=== PATIENT | female | born 1985 | race Caucasian/White ===

== ENCOUNTER → 2019-06-27 14:06 | Outpatient (CLI) | payer BC, SELFPAY | PROVIDERS: Family Provider Family Medicine; PCP Family Medicine; Referring Provider Nurse Practitioner Family; Visit Provider Nurse Practitioner Family | DX: J02.9 Acute pharyngitis, unspecified (principal) | CPT/HCPCS: 87070; 87077 ==

== ENCOUNTER → 2019-12-19 12:15 | Outpatient (CLI) | payer BC, SELFPAY ==
[2019-12-19 14:07] LABS: Absolute Lymphocyte Count 2.47 X10^3/uL (0.83-4.51); Absolute Neutrophil Count 4.7 X10^3/uL (2.0-7.7); Basophil# 0.01 X10^3/uL; Basophil% 0.1 % (0-1); Eosinophil# 0.03 X10^3/uL; Eosinophils% 0.4 % (0-5); Hematocrit 40.5 % (37-47); Hemoglobin 13.2 g/dL (12.0-15.0); Lymphocyte # 2.47 X10^3/ul (4.0); Lymphocyte % 32.4 % (19-41); Mean Corp Hgb Conc 32.6 g/dL (32-36); Mean Corpuscular Hgb 31.1 pg (27.0-32.0); Mean Corpuscular Volume 95.3 fL (81-99); Mean Platelet Vol. 11.2 fl (6.2-12.0); Monocyte# 0.36 X10^3/uL; Monocyte% 4.7 % (0-10); NRBC Flagged by Analyzer 0 % (0-5); Neutrophil # 4.74 X10^3/uL (2.7-7.7); Neutrophil % 62.3 % (47-70); Platelet Count 224 K/mm3 (150-450); RBC Distribution Width CV 12.9 % (11.6-14.6); RBC Distribution Width SD 45.1 fl (35.1-43.9); Red Blood Count 4.25 M/mm3 (4.2-5.4); White Blood Count 7.6 K/mm3 (4.4-11.0)
[2019-12-19 14:22] LABS: ALB/GLOB Ratio 1.1 RATIO (0.9-2.4); AST(SGOT) 8 U/L (15-37); Alanine Aminotransfer ALT/SGPT 14 U/L (13-56); Albumin, Serum 3.8 g/dL (3.2-5.0); Alkaline Phosphatase 50 U/L (45-117); Anion Gap 3 (5-15); BUN 7 mg/dL (7-18); Calcium,Total 8.7 mg/dL (8.5-10.1); Chloride 108 mmol/L (98-107); Creatinine, Serum 0.58 mg/dL (0.55-1.02); EST Glomerular Filtration Rate 125 mL/min (>60); Est Glom Filt Rate - Afr Amer 151 mL/min (>60); Globulin 3.4 g/dL (2.2-4.2); Glucose 83 mg/dL (74-106); Potassium 3.8 mmol/L (3.5-5.1); Protein, Total 7.2 g/dL (6.4-8.2); Sodium Level 138 mmol/L (136-145)
[2019-12-20 10:56] LABS: HIV - WCH Non-Reactive (Nonreactive); Hepatitis B Surface Antigen Non-Reactive (Nonreactive); Hepatitis C Antibody Non-Reactive (Nonreactive); Rubella IgG 172.1 IU/mL
[2019-12-22 03:50] LABS: Rapid Plasmin Reagin (RPR) NONREACTIVE (NONREACTIVE)
== END ==
PROVIDERS: PCP Family Medicine; Referring Provider Family Medicine; Visit Provider Family Medicine
DX: Z34.90 Encounter for supervision of normal pregnancy, unspecified, unspecified trimester (principal)
CPT/HCPCS: 36415; 80053; 85025; 86592; 86703; 86762; 86803; 86900; 86901; 87340

== ENCOUNTER → 2019-12-19 14:23 | Outpatient (CLI) | payer BC, SELFPAY ==
[2019-12-19 15:08] LABS: Mucous, Urine 0 SEEN /hpf (<or=2+); Red Blood Cells-Urine 0 SEEN /hpf (0-5); Squamous Epithelial Cells - UA 0 SEEN /hpf (5-10); White Blood Cells 0 SEEN /hpf (0-5)
[2019-12-19 15:49] LABS: Color, Urine Straw (Yellow); Glucose, Dipstick Normal (Normal); Ketone-Dipstick Negative (Negative); Leukocyte Esterase-Dipstick 25 /ul (Negative); Nitrite-Dipstick Negative (Negative); Occult Blood-Urine Negative /ul (Negative); Protein-Dipstick Negative (Negative); Specific Gravity, Urine 1.005 (1.002-1.030); Urine Bilirubin Dipstick Negative (Negative); Urine Clarity Clear (Clear); Urine Urobilinogen Normal (Normal)
[2019-12-19 16:13] LABS: Bacteria RARE /hpf (None Seen)
[2019-12-19 16:54] LABS: Chlamydia Trachomatis by PCR Negative (Negative); Neisserai gonorrhoeae by PCR Negative (Negative); Probe Check PASS; Sample Adequacy Control PASS; Specimen Processing Control PASS
== END ==
PROVIDERS: PCP Family Medicine; Referring Provider Family Medicine; Visit Provider Family Medicine
DX: Z34.90 Encounter for supervision of normal pregnancy, unspecified, unspecified trimester (principal)
CPT/HCPCS: 81001; 87491; 87591

== ENCOUNTER → 2019-12-22 12:19 | Outpatient (CLI) | payer BC, SELFPAY ==
--- NOTE | 2019-12-22 12:23 | US_ITS ---
STUDY: FIRST TRIMESTER OBSTETRICAL ULTRASOUND REASON FOR EXAM: Female, 34 years old size and dates, unsure of LMP LMP: Unknown. TECHNIQUE: Transvaginal TECHNICAL QUALITY: Adequate. PRIOR ULTRASOUND: None. FINDINGS: There is visualization of a single gestational sac in a normal intrauterine position. The mean sac diameter (MSD) measures 3.31 cm, indicating an estimated gestational age (EGA) of 8 weeks, 5 days. The gestational sac shape is within normal limits. There is a visualized yolk sac. The yolk sac measures 5.0 mm. The placenta is non-visualized. There is visualization of a live embryo. The crown-rump length (CRL) measures 2.55 cm, indicating an estimated gestational age (EGA) of 9 weeks, 3 days. There is demonstrated cardiac activity with a heart rate of 174 bpm. The estimated gestation age (EGA) by US is 9 weeks, 1 days. The estimated date of delivery (NICOL) by US is 07/25/2020. The uterus measures 11.3 x 7.0 x 6.1 cm. There is no demonstrated uterine fibroid. The cervix is closed. The right ovary measures 3.1 x 1.7 x 2.4 cm. There is no right ovarian cyst. There is no visualized right adnexal mass or complex lesion. The left ovary measures 2.1 x 2.7 x 1.7 cm. There is no left ovarian cyst. There is no visualized left adnexal mass or complex lesion. There is no fluid in the cul de sac. US/Transvaginal w/Preg US IMPRESSION: Single live intrauterine 9 weeks, 1 day by current ultrasound with NICOL of 07/25/2020. Heart rate at 174 bpm. No suspicious sonographic findings Electronically Signed: Shay Wallace MD at 8:58 EST , Service support ,
== END ==
PROVIDERS: PCP Family Medicine; Referring Provider Family Medicine; Visit Provider Family Medicine
DX: Z34.90 Encounter for supervision of normal pregnancy, unspecified, unspecified trimester (principal)
CPT/HCPCS: 76817

== ENCOUNTER → 2020-04-26 16:16 | Outpatient (CLI) | payer BC, SELFPAY ==
[2020-04-26 16:45] LABS: Hematocrit 34.8 % (37-47); Hemoglobin 11.4 g/dL (12.0-15.0); Mean Corp Hgb Conc 32.8 g/dL (32-36); Mean Corpuscular Hgb 32.2 pg (27.0-32.0); Mean Corpuscular Volume 98.3 fL (81-99); Mean Platelet Vol. 10.2 fl (6.2-12.0); Platelet Count 229 K/mm3 (150-450); RBC Distribution Width SD 46.6 fl (35.1-43.9); Red Blood Count 3.54 M/mm3 (4.2-5.4); White Blood Count 11.5 K/mm3 (4.4-11.0)
[2020-04-26 17:15] LABS: Glucose Challenge Gest 1H 50g 105 mg/dL (70-140)
== END ==
PROVIDERS: PCP Family Medicine; Visit Provider Obstetrics & Gynecology
DX: Z34.83 Encounter for supervision of other normal pregnancy, third trimester (principal)
CPT/HCPCS: 36415; 82950; 85027

== ENCOUNTER → 2020-06-18 09:02 | Outpatient (CLI) | payer OTHER, SELFPAY ==
[2020-06-18 09:06] LABS: Mucous, Urine 0 SEEN /hpf (<or=2+); Red Blood Cells-Urine 0 SEEN /hpf (0-5)
[2020-06-18 10:01] LABS: Absolute Lymphocyte Count 1.98 X10^3/uL (0.83-4.51); Absolute Neutrophil Count 6.9 X10^3/uL (2.0-7.7); Basophil# 0.02 X10^3/uL; Basophil% 0.2 % (0-1); Eosinophil# 0.02 X10^3/uL; Eosinophils% 0.2 % (0-5); Hematocrit 33.4 % (37-47); Hemoglobin 10.8 g/dL (12.0-15.0); Lymphocyte # 1.98 X10^3/ul (4.0); Lymphocyte % 21.1 % (19-41); Mean Corp Hgb Conc 32.3 g/dL (32-36); Mean Corpuscular Hgb 31.9 pg (27.0-32.0); Mean Corpuscular Volume 98.5 fL (81-99); Mean Platelet Vol. 10.5 fl (6.2-12.0); Monocyte# 0.42 X10^3/uL; Monocyte% 4.5 % (0-10); NRBC Flagged by Analyzer 0 % (0-5); Neutrophil % 73.4 % (47-70); Platelet Count 236 K/mm3 (150-450); RBC Distribution Width SD 46.4 fl (35.1-43.9); Red Blood Count 3.39 M/mm3 (4.2-5.4); White Blood Count 9.4 K/mm3 (4.4-11.0)
[2020-06-18 10:06] LABS: Color, Urine Yellow (Yellow); Glucose, Dipstick Normal (Normal); Ketone-Dipstick 5 mg/dl (Negative); Leukocyte Esterase-Dipstick 500 /ul (Negative); Nitrite-Dipstick Negative (Negative); Occult Blood-Urine 10 /ul (Negative); Protein-Dipstick 30 mg/dl (Negative); Specific Gravity, Urine 1.025 (1.002-1.030); Urine Clarity Cloudy (Clear); Urine Urobilinogen 1 mg/dl (Normal)
[2020-06-18 10:07] LABS: Urine Bilirubin Dipstick 1 mg/dL (Negative)
[2020-06-18 10:09] LABS: Fibrinogen 476 mg/dl (203-444); Partial Thromboplast Time 22.9 Seconds (24.1-36.2)
[2020-06-18 10:19] LABS: Bacteria 3+ /hpf (None Seen); Calcium Oxalate Crystals Ur 2+ /hpf (<or=2+); Squamous Epithelial Cells - UA 25-50 SEEN /hpf (5-10); White Blood Cells 25-50 SEEN /hpf (0-5)
[2020-06-18 10:38] LABS: ALB/GLOB Ratio 0.7 RATIO (0.9-2.4); AST(SGOT) 10 U/L (15-37); Alanine Aminotransfer ALT/SGPT 10 U/L (13-56); Albumin, Serum 2.8 g/dL (3.2-5.0); Alkaline Phosphatase 238 U/L (45-117); Anion Gap 8 (5-15); BUN 9 mg/dL (7-18); BUN/Creat Ratio 13.2 RATIO (10-20); Calcium,Total 8.3 mg/dL (8.5-10.1); Chloride 108 mmol/L (98-107); Creatinine, Serum 0.68 mg/dL (0.55-1.02); EST Glomerular Filtration Rate 104 mL/min (>60); Est Glom Filt Rate - Afr Amer 126 mL/min (>60); Globulin 4.2 g/dL (2.2-4.2); Glucose 115 mg/dL (74-106); Potassium 3.2 mmol/L (3.5-5.1); Sodium Level 138 mmol/L (136-145); Uric Acid 3.5 mg/dL (2.6-6.0)
[2020-06-18 10:59] LABS: Microalbumin,Random Urine 53.9 mg/L (NO RANGE EST.); Microalbumin:Creatinine Ratio 17.6 mg/g CRE (<30 mg/g CRE)
[2020-06-21 02:04] LABS: Rapid Plasmin Reagin (RPR) NONREACTIVE (NONREACTIVE)
== END ==
PROVIDERS: PCP Family Medicine; Referring Provider Family Medicine; Visit Provider Family Medicine
DX: G43.709 Chronic migraine without aura, not intractable, without status migrainosus (principal)
CPT/HCPCS: 36415; 80053; 81001; 82043; 82570; 84550; 85025; 85384; 85730; 86592; 87086; 87088

== ENCOUNTER → 2020-06-28 17:36 | Outpatient (CLI) | payer OTHER, SELFPAY | PROVIDERS: PCP Family Medicine; Referring Provider Obstetrics & Gynecology; Visit Provider Obstetrics & Gynecology | DX: Z36.85 Encounter for antenatal screening for Streptococcus B (principal) | CPT/HCPCS: 87081 ==

== ENCOUNTER 2020-07-01 21:50 | Outpatient (CLI) | payer OTHER, SELFPAY ==
[2020-07-01 22:04] VITALS: BP 133/90; PULSE 96
[2020-07-01 22:17] VITALS: BMI 31.7
[2020-07-01 22:50] LABS: ROM Internal Control Test YES-OK TO RESULT pt. (Internal QC)
[2020-07-01 22:54] LABS: ROM Patient Test Negative (Negative)
--- NOTE | 2020-07-02 02:27 | OB.TRI.NOTE ---
- Problem List (1) 36 weeks gestation of Status: Acute (2) Labor, false ([place]), antepartum Status: Acute History of Present Illness Date of Service: 07/01/20 Was patient seen by the physician?: No Reason For Visit: R/O LABOR Date of Service: 07/01/20 Final NICOL: 07/25/20 Final NICOL Source: US <20 weeks Gestational age: 36 Weeks and 5 Days Allergies Latex, Natural Rubber Allergy (Verified 07/01/20 22:18) Hives Laboratory Studies: Laboratory Tests 07/01/20 Range/Units 22:27 Vag Amniotic Fld Detect Negative (Negative) Review of Systems Constitutional: Denies: Chills, Fever, Weight Change HEENT: Denies: Head Aches, Sinus Congestion, Sinus Drainage Cardiovascular: Denies: Chest Pain, Palpitations Respiratory: Denies: Cough, Shortness of breath at rest, Sputum production Gastrointestinal: Denies: Abdominal Pain, Nausea, Vomiting Genitourinary: Denies: Dysuria Musculoskeletal: Denies: Joint Pain, Joint Tenderness Skin: Denies: Rash, Wounds Neurological: Denies: Numbness, Tingling, Focal weakness Psychiatric: Denies: Anxiety, Depression, Homicidal Ideations, Suicidal Ideations Hematologic/ Lymphatic: Denies: Easy Bruising, Easy Bleeding Physical Exam Vitals: Vital Signs Pulse BP 96 133/90 H 07/01/20 22:04 07/01/20 22:04 General: Alert, Oriented x3, No apparent distress HEENT: Atraumatic, Normocephalic. Negative for: Thyromegaly, Lymphadenopathy Cardiovascular: Regular rate, Regular Rhythm Lungs: Clear to auscultation Abdomen: Bowel Sounds Present, Gravid Neurological: Deep Tendon Reflexes 2+/4 and Symmetrical, Neuro grossly intact SONAR WATCHSTANDER: Normal external genitalia. Negative for: Vulvar lesions Estimated gestational size: Appropriate for gestational size Presentation: Cephalic Cervix Dilation (cm): 2 Station: -2 Effacement (%): 60 NST - FHR Rate Baby A Baseline: 140 Variability:: Moderate Accelerations:: 15 x 15 Decelerations:: None NST Reactive:: Yes FHR Category:: Category I Uterine Activity:: irritability Impression/Plan A/P: at 36 weeks gestation here to rule out labor Reports contractions every 3-5m at home On arrival to unit SVE 2/60/-2 with uterine irritability notes After 120 minutes, NST remains Category I, no cervical change noted with SVE 2/60/-2, no UC visualized Patient to discharge home to hydrate and rest, to call or return if UC return
== END 2020-07-02 00:10 | disposition home or self-care (01) ==
LOC: WPOUT 21:56 → WP 21:56
PROVIDERS: PCP Family Medicine; Referring Provider Obstetrics & Gynecology; Visit Provider Obstetrics & Gynecology
DX: O47.03 False labor before 37 completed weeks of gestation, third trimester (principal); Z3A.36 36 weeks gestation of pregnancy
CPT/HCPCS: 59025; 59050; 84112; 99218; G0378

== ENCOUNTER 2020-07-10 12:30 | Outpatient (CLI) | payer OTHER, SELFPAY ==
[2020-07-10 12:47] VITALS: BMI 31.4
[2020-07-10 13:04] VITALS: BP 111/67; PULSE 80; PULSE 87; TEMP 36.8; O2SAT 97
[2020-07-10 13:30] LABS: ROM Internal Control Test YES-OK TO RESULT pt. (Internal QC); ROM Patient Test Negative (Negative)
--- NOTE | 2020-07-11 10:00 | OB.TRI.NOTE ---
History of Present Illness Date of Service: 07/11/20 Reason For Visit: RULE OUT LABOR Date of Service: 07/11/20 Final NICOL: 07/25/20 Final NICOL Source: US <20 weeks Gestational age: 39 Weeks and 2 Days History of Present Illness: Pt with contractions at home. Allergies Latex, Natural Rubber Allergy (Verified 07/12/20 20:54) Hives - Pertinent Past Medical History Medical History: Past Medical History (Last Updated 07/20/20 @ 10:[address] 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 Laboratory Studies: Laboratory Tests 07/10/20 Range/Units 12:37 Vag Amniotic Fld Detect Negative (Negative) Review of Systems Constitutional: Denies: Chills, Fever, Weight Change HEENT: Denies: Head Aches, Sinus Congestion, Sinus Drainage Cardiovascular: Denies: Chest Pain, Palpitations Respiratory: Denies: Cough, Shortness of breath at rest, Sputum production Gastrointestinal: Denies: Abdominal Pain, Nausea, Vomiting Genitourinary: Denies: Dysuria Musculoskeletal: Denies: Joint Pain, Joint Tenderness Skin: Denies: Rash, Wounds Neurological: Denies: Numbness, Tingling, Focal weakness Psychiatric: Denies: Anxiety, Depression, Homicidal Ideations, Suicidal Ideations Hematologic/ Lymphatic: Denies: Easy Bruising, Easy Bleeding Physical Exam Vitals: Vital Signs Temp Pulse BP Pulse Ox 98.3 F 87 111/67 97 07/10/20 13:04 07/10/20 13:04 07/10/20 13:04 07/10/20 13:04 Cervix Dilation (cm): 1 - per nursing NST - FHR Rate Baby A Baseline: 140 Variability:: Moderate Accelerations:: 15 x 15 Decelerations:: None NST Reactive:: Yes FHR Category:: Category I Uterine Activity:: few ctx Impression/Plan Pt wtih ctx no signs of labor. NST reactive. Okay to d/c home
== END 2020-07-10 14:45 | disposition home or self-care (01) ==
LOC: WPOUT 12:35 → WP 13:12
PROVIDERS: PCP Family Medicine; Referring Provider Obstetrics & Gynecology; Visit Provider Obstetrics & Gynecology
DX: O47.1 False labor at or after 37 completed weeks of gestation (principal); Z3A.39 39 weeks gestation of pregnancy
CPT/HCPCS: 59025; 59050; 84112; 99218; G0378

== ENCOUNTER 2020-07-12 21:15 | Inpatient (IN) | payer OTHER, SELFPAY ==
[2020-07-12 20:42] VITALS: BP 119/70; PULSE 86
[2020-07-12 20:52] VITALS: BMI 31.5
[2020-07-12 21:11] LABS: ROM Internal Control Test YES-OK TO RESULT pt. (Internal QC)
[2020-07-12 21:12] LABS: ROM Patient Test POSITIVE (Negative)
[2020-07-12] MEDS: Lactated Ringers 500 ML 999 ML IV ×2 (21:40→23:52)
[2020-07-12 21:58] LABS: Absolute Lymphocyte Count 2.67 X10^3/uL (0.83-4.51); Absolute Neutrophil Count 11.8 X10^3/uL (2.0-7.7); Basophil# 0.03 X10^3/uL; Basophil% 0.2 % (0-1); Eosinophil# 0.06 X10^3/uL; Eosinophils% 0.4 % (0-5); Hematocrit 33.6 % (37-47); Hemoglobin 11.1 g/dL (12.0-15.0); Lymphocyte # 2.67 X10^3/ul (4.0); Lymphocyte % 17.1 % (19-41); Mean Corpuscular Hgb 31.4 pg (27.0-32.0); Mean Corpuscular Volume 95.2 fL (81-99); Monocyte% 5.8 % (0-10); NRBC Flagged by Analyzer 0 % (0-5); Neutrophil # 11.84 X10^3/uL (2.7-7.7); Neutrophil % 76.1 % (47-70); Platelet Count 217 K/mm3 (150-450); RBC Distribution Width CV 13.1 % (11.6-14.6); RBC Distribution Width SD 45.1 fl (35.1-43.9); Red Blood Count 3.53 M/mm3 (4.2-5.4); White Blood Count 15.6 K/mm3 (4.4-11.0)
[2020-07-12] MEDS: Lactated Ringers 1,000 ML 200 ML IV (22:12)
--- NOTE | 2020-07-12 22:24 | PCM.HP.OB ---
- Problem List (1) 38 weeks gestation of Status: Acute (2) Spontaneous rupture of amniotic membranes Status: Acute History Date of Admission: 07/12/20 Final NICOL: 07/25/20 Final NICOL Source: US <20 weeks Gestational age: 38 Weeks and 2 Days History of this : This is a 35 year-old, G [2], P [1], at 38 weeks gestational age. Allergies Latex, Natural Rubber Allergy (Verified 07/12/20 20:54) Hives Home Medications: Home Medications Escitalopram Oxalate [Lexapro] 20 mg PO DAILY 07/01/20 Folic Acid 1 mg PO DAILY 07/01/20 Potassium Citrate [Urocit-K] 5 meq PO DAILY 07/01/20 Cyanocobalamin/Folic Acid [Vitamin I77-Syvvw Acid Tablet] 400 mg PO BID 07/10/20 Smoking Status: Never smoker Alcohol: None Number of Fetus(es): 1 NST - FHR Rate Baby A Baseline: 135 Variability:: Moderate Accelerations:: 15 x 15 Decelerations:: None NST Reactive:: Yes FHR Category:: Category I Uterine Activity:: irregular History Past Pregnancies: PRIOR DELIVERY HISTORY DEL DATE GEST LAB WT LB WT OZ TYPE ANES LABOR TX Jan 20 40 20 6 3 Vag Epidural No Labs: Labs Mom's Problem List Problem Status Onset Code 38 weeks gestation of Acute Z3A.38 Spontaneous rupture of amniotic membranes Acute Mom's Labs & Results 07/12/20 07/12/20 07/12/20 20:50 21:40 21:40 WBC 15.6 H RBC 3.53 L Hgb 11.1 L Hct 33.6 L MCV 95.2 MCH 31.4 MCHC 33.0 RDW Std Deviation 45.1 H RDW Coeff of Yaakov 13.1 Plt Count 217 MPV 11.0 Immature Gran % (Auto) 0.400 Neut % (Auto) 76.1 H Lymph % (Auto) 17.1 L [place] % (Auto) 5.8 Eos % (Auto) 0.4 Baso % (Auto) 0.2 Absolute Neuts (auto) 11.8 H Absolute Lymphs (auto) 2.67 Nucleated RBC % 0 Vag Amniotic Fld Detect POSITIVE H Blood Type A POSITIVE Antibody Screen NEGATIVE Course Did the patient receive Yes care? Labs Blood Type: A RH: POSITIVE RPR/VDRL/Syphilis Nonreactive Rubella status Immune HbSAg Negative Date Done: 12/19/19 Chlamydia Negative Gonorrhea Negative HIV/AIDS Non-Reactive Group B Strep: Negative Current Obstetrical History Gestational Diabetes No Incompetent Cervix No Infertility No: PCOS 12 years ago IUGR No Macrosomia No Hypertension/Pre-eclampsia No Placenta Previa/Abruption No PTL/PROM No Uterine anomaly No Oligohydramnios No Polyhydramnios No Multiple gestation No Past Medical History Asthma No Diabetes No Hypertension No Heart disease No Mitral valve prolapse Yes Neurologic/Seizure disorder/ Yes: absence seizures since 1994 Migraines Kidney disease No Liver disease No Varicosities Yes Clotting disorders/Hx of DVT No Thyroid Dysfunction No Other medical diseases No Psychiatric disorders Yes: deppression on lexapro Major trauma No Abnormal PAP smear Yes: 12 years ago colposcopy done Sleep apnea No Mammogram in the last 2 years No Social History Marital Status: Hx Smoking No Smoking Status Never smoker Expected Infant Delivery Method: Spontaneous Vaginal Number of Visits: 9 Review of Systems Constitutional: Denies: Chills, Fever, Weight Change HEENT: Denies: Head Aches, Sinus Congestion, Sinus Drainage Cardiovascular: Denies: Chest Pain, Palpitations Respiratory: Denies: Cough, Shortness of breath at rest, Sputum production Gastrointestinal: Denies: Abdominal Pain, Nausea, Vomiting Genitourinary: Denies: Dysuria Musculoskeletal: Denies: Joint Pain, Joint Tenderness Skin: Denies: Rash, Wounds Neurological: Denies: Numbness, Tingling, Focal weakness Psychiatric: Denies: Anxiety, Depression, Homicidal Ideations, Suicidal Ideations Hematologic/ Lymphatic: Denies: Easy Bruising, Easy Bleeding Physical Exam Vitals: Vital Signs Pulse BP 86 119/70 07/12/20 20:42 07/12/20 20:42 General: Alert, Oriented x3, No apparent distress HEENT: Atraumatic, Normocephalic. Negative for: Thyromegaly, Lymphadenopathy Cardiovascular: Regular rate, Regular Rhythm Lungs: Clear to auscultation Abdomen: Bowel Sounds Present, Gravid Neurological: Deep Tendon Reflexes 2+/4 and Symmetrical, Neuro grossly intact COLLISION CENTER MANAGER: Normal external genitalia. Negative for: Vulvar lesions Estimated gestational size: Appropriate for gestational size Presentation: Cephalic Cervix Dilation (cm): 4 Station: -2 Effacement (%): 75 Assessment/Plan All Active Problems 36 weeks gestation of (Acute) Labor, false ([place]), antepartum (Acute) 38 weeks gestation of (Acute) Spontaneous rupture of amniotic membranes (Acute) A/P: This is a 35 year-old, G [2], P [1], at 38 weeks gestational age. ROM+ positive, clear fluid SVE 4.5/75/-2 UC irregular Plans epidural for pain management Expect
[2020-07-12 22:49] VITALS: BP 121/71
[2020-07-12 22:50] VITALS: BP 121/71; PULSE 71; PULSE 77; TEMP 36.8; O2SAT 98
[2020-07-12 23:58] VITALS: BP 126/63; PULSE 84
[2020-07-13] VITALS (61 sets, daily range): BP systolic 105–154; BP diastolic 53–83; PULSE 69–110; RESP 16; TEMP 36.2–37.3; O2SAT 98–100
[2020-07-13] MEDS: fentaNYL-bupivacaine (epidural) 100 ML BAG EPIDURAL (00:25)
[2020-07-13] MEDS: Lactated Ringers 500 ML 999 ML IV (00:52)
[2020-07-13] MEDS: Lactated Ringers 1,000 ML 200 ML IV (01:53)
[2020-07-13] MEDS: Oxytocin 30 units/NS 500 ml 30 UNITS/500 ML IV.SOLN 334 UNITS IV (04:21)
--- NOTE | 2020-07-13 04:43 | PCM.OPRPT ---
Problem List (1) 38 weeks gestation of Status: Acute (2) Spontaneous rupture of amniotic membranes Status: Acute Vaginal Delivery Maternal Presentation: Active Labor Amniotic Membrane Rupture Type: Spontaneous at home Rupture of Membrane time: 1829 Amniotic Fluid Description: Clear Final NICOL: 07/25/20 Final NICOL Source: US <20 weeks Gestational age: 38 Weeks and 2 Days Date of Procedure: 07/13/20 Pre-Operative Diagnosis: Labor Post-Operative Diagnosis: Surgery/ Procedure Performed: Spontaneous Vaginal Delivery Anesthesiologist: Xavi Ramirez Type of Anesthesia: Epidural Description of Procedure: Patient was FD at +2 station with spontaneous urge to push with contractions. She pushed well to deliver head in OA to TOMMY followed spontaneously by body. The female infant was placed on the maternal abdomen and further attended to by nursery personnel. The cord was doubly clamped and cut by FOB under CNM supervision at approximately 3 minutes of life. 1st degree vaginal floor laceration noted with periurethral skid rosa. Good hemostasis at all areas and no repair needed. With gentle traction the placenta delivered in Nancy mechanism. Three vessel cord noted With manual exploration, three clots/fragments removed from uterine cavity with fundus firm, midline, u/2 after massage. IV Pitocin started per protocol. Apgars 7/8. EBL 150. Sponge count correct x 2. Attending MD for CNM: Dr. Prabhakar Presentation: Vertex, TOMMY Placental Delivery Description: Spontaneous Placenta Disposition: [facility] Cord Vessel Description: 3 Vessels Cord Entanglement: None Drain: Dill to straight drain Estimated Blood Loss: 150 A gender: Female (1 minute): 7 (5 minute): 8 Episiotomy Description: None Laceration: 1st degree - vaginal floor Medications given after delivery: IV Pitocin
--- NOTE | 2020-07-13 04:48 | DCINST_ITS ---
Discharge Diet: No Restrictions Discharge Activity: Return to Normal Activity, May not drive while taking narcotic pain medications., May Shower May resume sexual activity in: 4-6 weeks Additional Activity Instructions:: Nothing in the vagina for 4-6 weeks. You may return to work/school in 6 weeks. Call your doctor if your incision/area has: Continuous Slow Oozing, Sudden Increased Bleeding, Increased Pain/ Swelling, Increased Redness, Foul Smelling Discharge Additional Instructions: If you experience any of the following, contact your healthcare provider. * Bleeding that soaks a pad every hour for 2 hours * Fever 100.4 or higher * Unrelieved incision or abdominal pain * Swelling, redness, discharge or bleeding from your incision or episiotomy site * Your incision begins to separate * Problems urinating (including inability to urinate or burning while urinating). * Visual changes * Severe headache * Flu-like symptoms * Pain or redness in one of both of your breasts * Pain, warmth, tenderness or swelling in your legs, especially the calf area * Frequent nausea and vomiting * Symptoms of depression or anxiety If you experience any of the following, call 911 or go to the nearest Emergency Room. * Chest pain * Problems breathing * Seizure activity * Partial or complete paralysis of a body part, slurred speech, weakness or drooping of the face, or a sudden inability to walk or hold your balance Allergies/Adverse Reactions: Allergies Latex, Natural Rubber Allergy (Verified 07/12/20 20:54) Hives Medications to take at Discharge Escitalopram Oxalate [Lexapro] 20 mg PO DAILY 07/01/20 Folic Acid 1 mg PO DAILY 07/01/20 Potassium Citrate [Urocit-K] 5 meq PO DAILY 07/01/20 Cyanocobalamin/Folic Acid [Vitamin X65-Nbdhs Acid Tablet] 400 mg PO BID 07/10/20 Please Follow Up With: Subhash Tompkins MD When: Call to make an appointment with your doctor in 6 weeks. If you had elevated Blood Pressure or 4th degree laceration you will need to be seen in 2 weeks. Primary Care Physician: Tom Aviles MD [Primary Care Provider] - Test Results: Test results from this visit will be discussed in further detail at your follow- up appointment, if applicable.
[2020-07-13 06:17] LABS: Hematocrit 30.4 % (37-47); Hemoglobin 10.3 g/dL (12.0-15.0); Mean Corp Hgb Conc 33.9 g/dL (32-36); Mean Corpuscular Volume 94.4 fL (81-99); Mean Platelet Vol. 10.6 fl (6.2-12.0); Platelet Count 178 K/mm3 (150-450); RBC Distribution Width CV 12.9 % (11.6-14.6); RBC Distribution Width SD 44.9 fl (35.1-43.9); Red Blood Count 3.22 M/mm3 (4.2-5.4)
[2020-07-13] MEDS: 0.9% Saline Lock 10 ML Syringe IV (06:51)
[2020-07-13] MEDS: Escitalopram Oxalate 20 MG Tablet PO (08:07)
[2020-07-13] MEDS: Folic Acid 1 MG Tablet PO (08:07)
[2020-07-13] MEDS: POTASSIUM CITRATE 5 MEQ TABLET.ER PO (08:08)
[2020-07-13] MEDS: Ibuprofen 600 MG Tablet PO (18:43)
[2020-07-14 03:30] VITALS: BP 115/71; PULSE 75; RESP 16; TEMP 36.4
[2020-07-14 03:31] VITALS: BP 115/71; PULSE 75
[2020-07-14 07:50] VITALS: BP 124/69; PULSE 70
[2020-07-14 08:00] VITALS: BP 124/69; PULSE 72; RESP 16; TEMP 36.3; O2SAT 98
[2020-07-14] MEDS: POTASSIUM CITRATE 5 MEQ TABLET.ER PO (10:07)
[2020-07-14] MEDS: Folic Acid 1 MG Tablet PO (10:09)
[2020-07-14] MEDS: Escitalopram Oxalate 20 MG Tablet PO (10:09)
--- NOTE | 2020-07-14 11:27 | PN.OBGYN_ITS ---
Patient Problems: Active and Suspected Problems 38 weeks gestation of (Acute) Spontaneous rupture of amniotic membranes (Acute) Subjective: Denies any pain, just discomfort from being in bed. Denies heavy bleeding. is going well now, but latch yesterday wasn't the best and has a blood blister on her nipple. Tolerating a regular diet, urinating well, passing flatus and ambulating in her room. Would like to go home today. Objective: VSS. Fundus is firm, midline, u/2. Lochia rubra moderate. - Physical Exam Vitals/I&O's: Vital Signs Temp Pulse Resp BP Pulse Ox 97.3 F L 72 16 124/69 H 98 07/14/20 08:00 07/14/20 08:00 07/14/20 08:00 07/14/20 08:00 07/14/20 08:00 Oxygen Delivery Method Room Air Weight: 80.739 kg Body Mass Index (BMI) 31.5 Intake and Output for Last 24 Hours 07/12/20 07/13/20 07/14/20 23:59 23:59 23:59 Intake Total 833.33 / 833.33 2683.33 / 2683.33 Output Total 1400 / 1400 Balance 833.33 / 833.33 1283.33 / 1283.33 General: Alert, Oriented x3, Cooperative HEENT: Atraumatic, PERRLA, EOMI, Normocephalic Neck: Supple, No JVD, Negative Carotid Bruits Lungs: Clear to auscultation, Normal air movement Cardiovascular: Regular rate, No murmurs Abdomen: Bowel Sounds Present, Soft, Non Tender Extremities: No edema, Capillary Refill Less than 3 Seconds Skin: No rashes, No breakdown, - - blood blister on bilateral nipples Musculoskeletal: No Tenderness to Palpation of Joints or Extremities Neurological: Cranial nerves II-XII grossly intact Psych/Mental Status: Normal Affect, Appropriate Current Medications Acetaminophen (Tylenol) 1,000 mg PO Q8H PRN PRN PRN Reason: Pain Score 1-3/10 Bisacodyl (Dulcolax) 10 mg RECTAL UD PRN PRN Reason: If no BM Escitalopram Oxalate (Lexapro) 20 mg PO DAILY KEILA Last Admin: 07/14/20 10:09 Dose: 20 mg Documented by: [facility] ([facility]) [facility] Last Admin: 07/14/20 10:09 Dose: 1 mg Documented by: Hydrocortisone (Hytone) 1 applic TOPICAL TID PRN PRN; Protocol PRN Reason: Discomfort Ibuprofen (Motrin) 600 mg PO Q6H PRN PRN PRN Reason: Pain Score 1-3/10 Last Admin: 07/13/20 18:43 Dose: 600 mg Documented by: Methylergonovine Maleate (Methergine) 0.2 mg IM X1 PRN PRN Reason: Excess bleeding/uterine atony Ondansetron HCl (Zofran) 4 mg IV Q4H PRN PRN PRN Reason: Nausea Oxycodone HCl (Oxyir) 5 - 10 mg PO Q4H PRN PRN PRN Reason: Pain Score 4-10/10 Potassium Citrate (Urocit-K) 5 meq PO DAILY [facility] Last Admin: 07/14/20 10:07 Dose: 5 meq Documented by: Senna/Docusate Sodium (Senokot-S, Martha-Colace) 1 - 2 tablet PO DAILY PRN PRN PRN Reason: Constipation Simethicone (Mylicon) 80 mg PO PCHS PRN PRN Reason: Indigestion/Stomach pain Sodium Chloride () 5 - 15 ml IV UD PRN PRN Reason: SALINE FLUSH Last Admin: 07/13/20 06:51 Dose: 10 ml Documented by: Throat Lozenges (Dermoplast (Sp)) 1 applic TOPICAL 4X/DAY PRN PRN; Protocol PRN Reason: Pain/Inflammation Medical Necessity - Tobacco Use Smoking Status: Never smoker Assessment/Plan All Active Problems 36 weeks gestation of (Acute) Labor, false ([place]), antepartum (Acute) 38 weeks gestation of (Acute) Spontaneous rupture of amniotic membranes (Acute) A/P: S/P Day #1 mother Normal involution and course Triple nipple ointment ordered through compound pharmacy for nipple blisters Will follow up in [address] Tompkins Discharge home today
== END 2020-07-14 12:25 | disposition home or self-care (01) | DRG 807 ==
LOC: WPOUT 21:20 → WP 21:20
PROVIDERS: Admitting Provider Obstetrics & Gynecology; PCP Family Medicine; Visit Provider Obstetrics & Gynecology
DX: O71.4 Obstetric high vaginal laceration alone (principal); Z37.0 Single live birth; Z3A.38 38 weeks gestation of pregnancy; O92.79 Other disorders of lactation
CPT/HCPCS: 59025; 59050; 84112; 85025; 85027; 86850; 86900; 86901; 99218; J7120; A4216; G0378

== ENCOUNTER → 2020-07-17 11:39 | Outpatient (CLI) | payer OTHER, SELFPAY ==
[2020-07-12 20:52] VITALS: BMI 31.5
[2020-07-17 16:03] LABS: ALB/GLOB Ratio 0.7 RATIO (0.9-2.4); AST(SGOT) 16 U/L (15-37); Alanine Aminotransfer ALT/SGPT 21 U/L (13-56); Albumin, Serum 2.9 g/dL (3.2-5.0); Alkaline Phosphatase 261 U/L (45-117); Anion Gap 6 (5-15); BUN 9 mg/dL (7-18); BUN/Creat Ratio 16.4 RATIO (10-20); Calcium,Total 8.3 mg/dL (8.5-10.1); Chloride 107 mmol/L (98-107); Creatinine, Serum 0.55 mg/dL (0.55-1.02); EST Glomerular Filtration Rate 134 mL/min (>60); Est Glom Filt Rate - Afr Amer 162 mL/min (>60); Ferritin 9 ng/mL (8-252); Globulin 4.2 g/dL (2.2-4.2); Glucose 74 mg/dL (74-106); Potassium 3.6 mmol/L (3.5-5.1); Protein, Total 7.1 g/dL (6.4-8.2); Sodium Level 138 mmol/L (136-145)
== END ==
PROVIDERS: PCP Family Medicine; Referring Provider Family Medicine; Visit Provider Family Medicine
DX: Z39.2 Encounter for routine postpartum follow-up (principal); G43.709 Chronic migraine without aura, not intractable, without status migrainosus
CPT/HCPCS: 36415; 80053; 82728

== ENCOUNTER → 2020-08-23 13:03 | Outpatient (CLI) | payer OTHER, SELFPAY ==
[2020-08-27 18:07] LABS: HPV Reflexed? NOT INDICATED
== END ==
PROVIDERS: PCP Family Medicine; Visit Provider Obstetrics & Gynecology
DX: Z12.4 Encounter for screening for malignant neoplasm of cervix (principal)
CPT/HCPCS: 88175; G0145

== ENCOUNTER → 2020-08-30 16:40 | Outpatient (CLI) | payer OTHER, SELFPAY ==
[2020-09-04 03:06] LABS: Chlamydia By Nucleic Acid AMP Negative (Negative)
[2020-09-04 07:44] LABS: Gonococcus By Nucleic Acid AMP Negative (Negative)
== END ==
PROVIDERS: PCP Family Medicine; Visit Provider Obstetrics & Gynecology
DX: Z11.3 Encounter for screening for infections with a predominantly sexual mode of transmission (principal)
CPT/HCPCS: 87491; 87591

== ENCOUNTER → 2020-10-10 11:51 | Outpatient (CLI) | payer OTHER, SELFPAY | LOC: MFPLAB 11:52 → LABSPEC 12:03 | PROVIDERS: PCP Family Medicine; Referring Provider Family Medicine; Visit Provider Family Medicine | DX: Z20.828 Contact with and (suspected) exposure to other viral communicable diseases (principal) | CPT/HCPCS: 87635; U0003 ==

== ENCOUNTER → 2021-08-07 15:17 | Outpatient (CLI) | payer OTHER, SELFPAY | PROVIDERS: PCP Family Medicine; Referring Provider Family Medicine; Visit Provider Family Medicine | DX: Z20.828 Contact with and (suspected) exposure to other viral communicable diseases (principal) | CPT/HCPCS: 87635; U0005; U0003 ==

== ENCOUNTER → 2021-09-05 11:43 | Outpatient (CLI) | payer OTHER, SELFPAY ==
[2021-09-05 11:50] LABS: Lyme Ab Screen Interpretation REF LAB
[2021-09-05 16:13] LABS: Absolute Lymphocyte Count 1.95 X10^3/uL (0.83-4.51); Absolute Neutrophil Count 6.3 X10^3/uL (2.0-7.7); Basophil# 0.04 X10^3/uL; Basophil% 0.5 % (0-1); Eosinophil# 0.07 X10^3/uL; Eosinophils% 0.8 % (0-5); Hematocrit 46.1 % (37-47); Hemoglobin 14.7 g/dL (12.0-15.0); Lymphocyte # 1.95 X10^3/ul (0.83-4.51); Lymphocyte % 22.7 % (19-41); Mean Corp Hgb Conc 31.9 g/dL (32-36); Mean Corpuscular Hgb 30.1 pg (27.0-32.0); Mean Corpuscular Volume 94.5 fL (81-99); Mean Platelet Vol. 10.9 fl (6.2-12.0); Monocyte# 0.26 X10^3/uL; NRBC Flagged by Analyzer 0 % (0-5); Neutrophil # 6.25 X10^3/uL (2.7-7.7); Neutrophil % 72.7 % (47-70); Platelet Count 284 K/mm3 (150-450); RBC Distribution Width CV 13.4 % (11.6-14.6); RBC Distribution Width SD 46.7 fl (35.1-43.9); Red Blood Count 4.88 M/mm3 (4.2-5.4); White Blood Count 8.6 K/mm3 (4.4-11.0)
[2021-09-05 16:17] LABS: CRP < 2.90 mg/L (0.0-3.0)
[2021-09-05 16:27] LABS: Erythrocyte Sedimentation Rate 2 mm/hr (0-30)
[2021-09-07 18:07] LABS: Lyme Scn Total Ab w/Rflx <0.91 ISR (0.00-0.90)
[2021-09-09 13:19] LABS: ANTINUCLEAR ANTIBODIES DIRECT Positive (Negative)
== END ==
PROVIDERS: PCP Family Medicine; Referring Provider Family Medicine; Visit Provider Family Medicine
DX: R21 Rash and other nonspecific skin eruption (principal)
CPT/HCPCS: 36415; 85025; 85652; 86038; 86140; 86618

== ENCOUNTER 2021-12-30 09:13 | Day surgery (SDC) | payer OTHER, SELFPAY ==
[2021-12-25 11:32] LABS: Hematocrit 44.5 % (37-47); Hemoglobin 14.3 g/dL (12.0-15.0); Mean Corp Hgb Conc 32.1 g/dL (32-36); Mean Corpuscular Volume 93.3 fL (81-99); Mean Platelet Vol. 10.6 fl (6.2-12.0); Platelet Count 303 K/mm3 (150-450); RBC Distribution Width CV 12.6 % (11.6-14.6); RBC Distribution Width SD 43.7 fl (35.1-43.9); Red Blood Count 4.77 M/mm3 (4.2-5.4); White Blood Count 6.9 K/mm3 (4.4-11.0)
[2021-12-25 12:01] LABS: International Normalized Ratio 1.1; Partial Thromboplast Time 28.9 Seconds (24.1-36.2); Prothrombin Time (Protime)PT. 13.3 SECONDS (11.7-14.9)
[2021-12-25 12:08] LABS: AST(SGOT) 9 U/L (15-37); Alanine Aminotransfer ALT/SGPT 14 U/L (13-56); Albumin, Serum 4.3 g/dL (3.2-5.0); Alkaline Phosphatase 83 U/L (45-117); Protein, Total 8.3 g/dL (6.4-8.2)
[2021-12-25 12:28] LABS: Internal QC Validated? YES +Cl - CLEAR BKGD; Pregnancy, Serum, hCG Quali. NEGATIVE Negative
--- NOTE | 2021-12-28 08:01 | PCM.HP.BLA ---
History and Physical Date of Admission: 12/30/21 Surgical History and Physical Carline Ruiz, a 36 year old female 2 0 0 0 2, presents for L/S Bilateral Salpingectomy on December 30, 2021. -- Desires Permanent Sterilization -- She does report that she has noticed significant change in libido and wonders if that is from the Liletta IUD? Advised that is not likely. Decided to get IUD out and get a Tubal, or other form of control, as she admits she has tried multiple forms of control with adverse reactions to most. Medication and Allergy lists up-dated. MEDICATIONS HISTORY: Patient is also takin. Lexapro 20 mg tablet, one tablet daily ALLERGIES: Latex, Latex, Swelling (localized), Progesterone and Intolerance-headache Infections - Chicken pox, Rheumatic Fever and Siedenhams Chrorea Illnesses - Mitral Valve Prolapse Accidents - no injuries of consequence Hospitalizations - see surgery Review of Systems: GENERAL - Denies fever, or chills SKIN - Denies skin changes EYES - Denies visual changes EARS - Denies difficulty hearing NOSE - Denies nasal congestion or bleeding MOUTH - Denies sore throat or difficulty swallowing NECK - Denies pain or swelling RESPIRATORY - Denies shortness of breath or wheezing CARDIOVASCULAR - Denies palpitations or chest pain GASTROINTESTINAL - Denies nausea, vomiting, diarrhea, constipation GENITOURINARY - Denies dysuria, frequency of urination, incontinence of urine MUSCULOSKELETAL - Denies joint or muscle pain NEUROLOGICAL - Denies localized numbness or weakness PSYCHIATRIC - Denies depression or anxiety ENDOCRINE - Denies heat or cold intolerance, weight loss or gain HEMATO-IMMUNOLOGIC - Denies excesive bleeding with cuts SOCIAL HISTORY: Alcohol Use - Not since Smoking - used to smoke but quit Diet - balanced Diet Lifestyle - high stress lifestyle and Going through a divorce Exercise - regular Seat Belt Use - occasional Employer - [employer] Job Description - Public Information Relations Manager Illicit Drug Use - denies use of street drugs Sexual Activity - ACTIVE ONE PARTNER and Residence - LIves with 13 year old son, moving soon Place of - [place] 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 unknown origin. Paternal Grandmother: Bone Cancer. Maternal Aunt: Ovarian Cancer? great aunt. MENSTRUAL HISTORY: LMP Known?- DefiniteAmount/Duration - 3 days and normal amount, Regularity - Regular, Frequency - monthly days, LMP - 12/13/21, Age Onset Menarche - 12 PAST PREGNANCIES: Total Pregnancies - 2; Full Term Pregnancies - 2; Premature - 0; Abortions, Induced - 0; Abortions, Spontaneous - 0; Ectopics - 0; Multiple Births - 0; Living Children - 2 SURGICAL HISTORY: 1. [place] 2007 PHYSICAL EXAM BP- 122/68 Sitting, Right arm, regular cuff Weight- 172.0 lbs Height- 63 inch BMI:30.5 CONSTITUTIONAL - NAD, well nourished, and well developed SKIN - No rash, lesions, or ulcers HEENT - Normocephalic, PERRLA, EOMI NECK - No nodes, no nuchal rigidity and thyroid normal size and texture LYMPH NODES - Palpation of lymph nodes in neck and groins within normal limits LUNGS - CTA x2 without wheezes, crackles or rales CARDIAC - Regular rate and rhythm without rubs, murmurs, or gallops ABDOMEN - Without hepatosplenomegaly, distention, masses, rebound, or guarding; normal bowel sounds; no hernias EXTREMITIES - No edema or calf tenderness NEUROLOGICAL - Cranial nerves II-XII grossly intact PSYCHIATRIC - A and O to time, place, person, mood and affect External Genitial Vagina - non-tender without lesions Urethra/Urethral Meatus - non-tender Bladder - non-tender Vagina - vaginal muniz are pink and moist without loss of rugae and no evidence of atropy Cervix - without cervical motion tenderness and has normal size and features without evident lesions and IUD string in place Uterus - 5-6 cm in size, mobile and nontender Adnexa - clear without massess or tenderness ASSESSMENT/PLAN: 1. Dysmenorrhea; Desires permanent sterilization Thinks may be due to IUD. Wants it removed and permanent sterillization. IUD removed and discussed L/S Hong Salpingectomy at length and all questions answered.
[2021-12-30 09:39] LABS: Internal QC Validated? YES +Cl - CLEAR BKGD; Pregnancy, Urine Negative Negative
[2021-12-30 09:49] VITALS: BP 105/75; PULSE 65; RESP 18; TEMP 36.7; O2SAT 100; BMI 30.4
--- NOTE | 2021-12-30 11:00 | FALS_PTH ---
PATIENT: LELE LANCASTER LOC: [facility] [place] U#:[id number] AGE/SX: 36/F ROOM: RE12/30/[address]: Dr. Subhash Tompkins MD : [id number] BED: DIS: 12/30/2021 SPEC #: [id number] RECD: 12/30/21 14:43 STATUS: CIARA RELoida #: [id number] MICHAEL: 12/30/21 11:[address]: Subhash Tompkins DEPT: SURGICAL PATHOLOGY RECD BY: Vivienne Albert ENTERED: 12/31/21 09:56 SP TYPE: FALL TUBES OTHR DR: MD Dr. Tom Murphy MD Tissues: Fallopian tube Procedures: Surgery Specimen Level IV HEADER OPERATION: Laparoscopic bilateral salpingectomy PRE-OP DIAGNOSIS: Dysmenorrhea, sterilization TISSUE SUBMITTED: Bilateral fallopian tubes MICROSCOPIC DIAGNOSIS Right and left fallopian tubes, bilateral salpingectomies: Complete segments of fallopian tubes with benign paratubal cysts. AM:herlinda 01/01/2022 MICROSCOPIC DESCRIPTION Slides are reviewed. GROSS DESCRIPTION Received in fixative is one container labeled with the patient's name and designated bilateral fallopian tubes. The specimen consists of bilateral fallopian tubes including fimbrial ends measuring 6 cm in length and 0.5 cm in diameter and 7.5 cm in length and 0.5 cm in diameter. Both of the fallopian tubes show a paratubal cyst filled with clear fluid measuring 0.5 cm in diameter. The fallopian tubes are not identified as right or left. Sections reveal unremarkable cut surfaces. Radio Board Operator sections are submitted in two cassettes as follows: 1 ? fallopian tube and paratubal cyst, 2 ? second fallopian tube. / SJ:herlinda 12/31/2021 TC:5 CPT: 34882 x2
[2021-12-30] MEDS: Cefotetan 2 GM in 0.9% NS 100 ML IV (11:07)
[2021-12-30] MEDS: Ropivacaine 0.5% 30 ML Vial (11:27)
--- NOTE | 2021-12-30 11:42 | OP.PCM_ITS ---
Report of Operation Date of Procedure: 12/30/21 Pre-Operative Diagnosis: Desires Permanent Sterilization Post-Operative Diagnosis: Desires Permanent Sterilization Surgery/Procedure Performed:: Laparoscopic Bilateral Salpingectomy Description of Surgical Findings:: Normal pelvis. Surgeon: Subhash Tompkins reporting process consultant: Dena Haider Type of Anesthesia: General (Endotracheal) Anesthesiologist: Shakila Maria Specimen's removed: Bilateral fallopian tubes Estimated Blood Loss (mL): Minimal Fluids Replaced: Crystalloid Description of Procedure: Surgeon: Subhash Tompkins MD, FACOG Indications: This is a 36 year old patient who has the above diagnosis. She has considered sterilization for quite some time. She is aware of the permanent nature of the procedure, the failure rate of 1-2%, and the availability of other nonpermanent control options. All questions were answered to consider the patient well-informed. Procedure: The patient was taken to the operating room where after induction of general anesthesia, she was placed in the dorsolithotomy position and prepped and draped in the usual sterile fashion. The bladder was drained of approximately 50 cc of clear yellow urine with a catheter. Anterior cervix was grasped with the tenaculum. Conn cannula was placed and attention was turned toward the laparoscopic portion of the procedure. Approximately 30 cc of half percent ropivacaine was injected subumbilically, suprapubically and midway between. A 5 mm bladeless trocar was placed subumbilically and intraperitoneal placement confirmed. After CO2 insufflation was complete, a 5 mm bladeless trocar was introduced suprapubically. The above findings were noted. A 5 mm bladeless port was then placed midway between these 2 ports for tubal manipulation. Each fallopian tube was identified to its fimbriated end and an Enseal device was used to divide the mesosalpinx to the uterus. Tubes were removed through the lower 5 mm port. The peritoneal cavity and upper abdomen were examined and noted to be normal. Photographs were taken. Laparoscopic instruments with as much CO2 gas as possible were removed and incisions were closed with interrupted 4-0 Monocryl suture. Steri-Strips placed across the incision. Vaginal instruments were removed. The patient tolerated the procedure well was taken to recovery room in satisfactory condition and sponge instrument and needle counts were all reportedly correct. Estimated blood loss for the case was minimal. Cefotan 2 g IV was given prior to beginning the operative procedure. There were no apparent complications of the surgery. Specimens to pathology was bilateral tubes Grafts/Implants Used: None Complications None Admit VTE Documentation VTE Present on Admission: Yes VTE Mechan Device Prophylaxis: SCD's
--- NOTE | 2021-12-30 11:44 | PCM.DC ---
Discharge Instructions Diet Discharge Diet: No restrictions (Increase fluid intake for the next 48 hours.) and - (Increase fluid intake for 48 hours.) Activity Additional Activity Instructions:: Ambulate often the next week after surgery. Nothing in the vagina for 5 days. Dressing / Incision Call your doctor if your incision/area has: Continuous Slow Oozing, Sudden Increased Bleeding, Increased Pain/ Swelling, Increased Redness and Foul Smelling Discharge Call your doctor if you observe: Fever of 101 or Higher Follow Up Care Please Follow Up With: Subhash Tompkins MD When: Call [phone] for an appointment in 2 to 3 weeks. Test Results: Test results from this visit will be discussed in further detail at your follow-up appointment, if applicable. Discharge Plan Admission Primary Reason for Your Visit: Tubal Ligation Attending Provider: Subhash Tompkins Primary Care Provider: Tom Aviles Consulting Providers: Tom Frazier Discharge Orders/Prescriptions Prescriptions: No Action escitalopram oxalate 20 MG tablet 20 mg PO DAILY RF: 0 Referrals / Follow Up: Tom Aviles MD [Primary Care Provider] - Disposition Disposition (needs filled in before D/C Order can be placed): Home, Self Care
[2021-12-30 12:00] VITALS: BP 123/77; PULSE 94; RESP 16; TEMP 36.1; O2SAT 99
[2021-12-30 12:15] VITALS: BP 116/89; PULSE 72; RESP 16; O2SAT 100
[2021-12-30 12:30] VITALS: BP 105/75; BP 121/98; PULSE 57; RESP 16; TEMP 36; O2SAT 100
[2021-12-30] MEDS: Lactated Ringers 1,000 ML 15 ML IV (12:34)
[2021-12-30 13:45] VITALS: BP 105/75; BP 110/77; PULSE 71; RESP 14; TEMP 36.5; O2SAT 99
== END 2021-12-30 23:59 | disposition home or self-care (01) ==
LOC: SDC 09:15 → AC 09:15
PROVIDERS: Anesthesiology; PCP Family Medicine; Referring Provider Obstetrics & Gynecology; Visit Provider Obstetrics & Gynecology
PROC: (CPT 58661; principal; 2021-12-30 10:45)
DX: Z30.2 Encounter for sterilization (principal); N83.8 Other noninflammatory disorders of ovary, fallopian tube and broad ligament; F32.A Depression, unspecified; F41.9 Anxiety disorder, unspecified; Z86.16 Personal history of COVID-19; Z79.899 Other long term (current) drug therapy; Z87.891 Personal history of nicotine dependence; G25.81 Restless legs syndrome
CPT/HCPCS: 58661; 00840; 36415; 80076; 81025; 84703; 85027; 85610; 85730; 86850; 86900; 86901; 87426; 88302; 88305; C9803; J7120; C1760; J2405

== ENCOUNTER 2024-06-12 19:35 | Emergency (ER) | payer OTHER, SELFPAY ==
[2024-06-12 19:36] VITALS: BP 128/72; PULSE 102; RESP 22; TEMP 36.8; O2SAT 100; BMI 30.2
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
[2024-06-12 20:35] VITALS: BP 136/78; PULSE 78; RESP 18; TEMP 36.2; O2SAT 97
[2024-06-12] MEDS: Acetaminophen 500 MG Tablet 1000 MG PO (20:49)
[2024-06-12] MEDS: Ondansetron ODT 4 MG Tablet PO (20:49)
== END 2024-06-12 21:14 | disposition home or self-care (01) ==
PROVIDERS: Emergency Provider Emergency Medicine; PCP Family Medicine; Visit Provider Emergency Medicine
DX: S06.0X0A Concussion without loss of consciousness, initial encounter (principal); Z87.891 Personal history of nicotine dependence; F41.9 Anxiety disorder, unspecified; V49.40XA Driver injured in collision with unspecified motor vehicles in traffic accident, initial encounter; S16.1XXA Strain of muscle, fascia and tendon at neck level, initial encounter; Z86.16 Personal history of COVID-19; S80.212A Abrasion, left knee, initial encounter
CPT/HCPCS: 70450; 72125; 99283